=== PATIENT | male | born 1995 | race Caucasian/White ===

== ENCOUNTER 2022-11-09 11:01 | Emergency (ER) | payer BC ==
[~2022-11-09] VITALS: Ht 172.7 cm; Wt 77.0 kg
[2022-11-09 11:36] VITALS: BP 126/69
== END 2022-11-09 16:15 | disposition left against medical advice (07) ==
LOC: ER 11:18
DX: Z53.21 Procedure and treatment not carried out due to patient leaving prior to being seen by health care provider (principal); I49.9 Cardiac arrhythmia, unspecified
CPT/HCPCS: 93005